=== PATIENT | male | born 1975 | race Caucasian/White ===

== ENCOUNTER 2020-08-02 00:25 | Emergency (ER) | payer OTHER, SELFPAY ==
[2020-08-02 00:30] VITALS: BP 142/79; PULSE 70; RESP 18; TEMP 36.4; O2SAT 97
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
[2020-08-02 01:42] VITALS: BP 131/73; PULSE 78; RESP 16; TEMP 36.4; O2SAT 99
== END 2020-08-02 01:43 | disposition home or self-care (01) ==
PROVIDERS: Emergency Provider Emergency Medicine
DX: T23.251A Burn of second degree of right palm, initial encounter (principal); T31.0 Burns involving less than 10% of body surface; X15.0XXA Contact with hot stove (kitchen), initial encounter
CPT/HCPCS: 99283; A9270

== ENCOUNTER 2022-05-31 11:47 | Emergency (ER) | payer OTHER, SELFPAY ==
[2022-05-31 12:00] VITALS: BP 137/76; PULSE 81; RESP 16; TEMP 36.6; O2SAT 98
--- NOTE | 2022-05-31 12:06 | ED.URI ---
HPI - URI/Sore Throat General Chief Complaint: Upper Respiratory Infection Stated Complaint: sore throat Time Seen by Provider: 05/31/22 12:19 Source: patient and RN notes reviewed Mode of arrival: ambulatory Limitations: no limitations History of Present Illness HPI Narrative: 37-year-old male presents concern for sore throat, cough, sinus pressure, green nasal drainage. Reports cough is worse at night. Patient is concerned for strep throat. He denies fevers, body aches, chills sweats. Reports his got him a prescription of amoxicillin which he started taking yesterday. He is also taking DayQuil and NyQuil MD elicited complaint: cough and sore throat Related Data Home Medications Medication Instructions Recorded Confirmed No Home Medications 08/02/20 08/02/20 Allergies Allergy/AdvReac Type Severity Reaction Status Date / Time No Known Allergies Allergy Verified 08/02/20 00:33 Review of Systems Review of Systems: CONSTITUTIONAL: Denies malaise, chills, sweats, or fever. EYES: Denies visual changes, redness, or discharge. ENT: Reports rhinorrhea, congestion. Reports sinus pain and sore throat. CARDIOVASCULAR: Denies chest pain, palpitations, or edema. RESPIRATORY: Reports cough. Denies dyspnea. GASTROINTESTINAL: Denies abdominal pain, nausea, vomiting, diarrhea SKIN: Denies rash or itching. MUSCULOSKELETAL: Denies myalgia. NEUROLOGIC: Denies headache. All systems reviewed & are unremarkable except as noted in HPI and below PMFSH Comments At time of signature, agree with nursing past medical, surgical, social and family history. There is no relevant family history pertinent to the presenting complaint Exam Narrative: GENERAL: Well-appearing, well-nourished, and in no acute distress. HEAD: Normocephalic EYES: PERRLA, conjunctivae clear ENT: Nares clear, clear discharge. Mucous membranes moist. TM pearly xiao with dull light reflex bilaterally; no tragal tenderness. Oropharynx erythematous without lesions. Tonsils not enlarged and without exudate, no drooling, no hoarseness, no trismus, uvula midline. NECK: Supple. No lymphadenopathy CHEST: Clear to auscultation, breath sounds equal. No wheezing, rhonchi, rales, or stridor. No respiratory distress, speaks in full sentences. HEART: Regular rate and rhythm. No murmur heard. SKIN: Warm, dry, no rash. NEURO: Alert and oriented x3. PSYCH: Normal mood and affect Course Course Emergency Course: Patient is aware of diagnosis, understands and agrees to treatment plan. Anticipatory guidance given. Patient agrees to follow-up as directed and is aware of reasons to seek care at the emergency department. Portions of this record may have been created with voice recognition software Level of Care: Express Care Visit Vital Signs Vital signs: Vital Signs Temperature 97.8 F 05/31/22 12:00 Pulse Rate 81 05/31/22 12:00 Respiratory Rate 16 05/31/22 12:00 Blood Pressure 137/76 05/31/22 12:00 Pulse Oximetry 98 05/31/22 12:00 Oxygen Delivery Room Air 05/31/22 12:00 Temperature 97.8 F 05/31/22 12:00 Pulse Rate 81 05/31/22 12:00 Respiratory Rate 16 05/31/22 12:00 Blood Pressure 137/76 05/31/22 12:00 Pulse Oximetry 98 05/31/22 12:00 Oxygen Delivery Room Air 05/31/22 12:00 Reviewed. MDM - URI/Sore Throat MDM Narrative Medical decision making narrative: Differential diagnosis considered: Santos virus, strep pharyngitis, allergic rhinitis, upper respiratory tract infection, sinusitis, rhinosinusitis, nasopharyngitis. viral pharyngitis, otitis media, otitis externa, pneumonia, bronchitis, viral cough syndrome, viral syndrome, and influenza. Exam findings show no acute concerns or changes; patient is non-toxic appearing and is in no distress. Patient is appropriate for outpatient treatment and follow-up. Lab Data Attestation: I reviewed the patient's lab results. Critical Care Time Critical Care Time Critical Care Time: No
== END 2022-05-31 12:35 | disposition home or self-care (01) ==
PROVIDERS: Emergency Provider Nurse Practitioner
DX: J06.9 Acute upper respiratory infection, unspecified (principal)
CPT/HCPCS: 87081; 87880; 99213; G0463

== ENCOUNTER 2022-10-12 10:42 | Outpatient (CLI) | payer OTHER, SELFPAY ==
--- NOTE | 2022-10-12 | ECG_ITS ---
Measurements Intervals [place] Rate: 50 P: 64 OR: 142 QRS: 2 QRSD: 106 T: 25 QT: 435 QTc: 398 Interpretive Statements SINUS BRADYCARDIA INCOMPLETE RIGHT BUNDLE BRANCH BLOCK [90+ ms QRS DURATION, TERMINAL R IN V1/V2, 40+ ms S IN I/aVL/V4/V5/V6] NO PREVIOUS ECG AVAILABLE FOR COMPARISON Electronically Signed On 10-12-2022 11:59:41 CDT by Martina Brown M.D.
[2022-10-12 11:17] LABS: Basophils Absolute Auto 0.1 K/mm3 (0.0-0.1); Basophils Percent Auto 0.6 % (0.2-1.2); Eosinophils Absolute Auto 0.1 K/mm3 (0-0.3); Eosinophils Percent Auto 1.6 % (0-4.4); Hematocrit 44.2 % (42.0-52.0); Hemoglobin 14.7 g/dL (14.0-18.0); Immature Granulocyte Absolute 0.02 K/mm3 (0.00-0.031); Immature Granulocyte Percent A 0.2 % (0-0.5); Lymphocytes Absolute Auto 2.25 K/mm3 (0.9-3.2); Mean Corpuscular HGB Conc 33.3 g/dl (32-36); Mean Corpuscular Hemoglobin 29.3 pg (26-34); Mean Platelet Volume 11.3 fl (7.4-10.4); Monocytes Absolute Auto 0.6 K/mm3 (0.1-0.6); Monocytes Percent Auto 7.8 % (2.6-8.5); Neutrophils Percent Auto 61.8 % (45.5-73.1); Platelet Count Result 274 k/mm3 (150-375); Red Blood Count 5.02 M/mm3 (4.6-6.20); Red Cell Distribution Width 12.9 % (11.5-14.5); White Blood Count 8.1 K/mm3 (4.5-10.0)
[2022-10-12 11:20] LABS: Appearance Urine Clear (Clear); Bilirubin Urine Negative (Negative); Blood Urine Negative (Negative); Color Urine Yellow (Yellow); Glucose Urine UA Negative (Negative); Ketones Urine Negative (Negative); Leukocyte Esterase Ur Negative LEU/UL (Negative); Nitrate Urine Negative (Negative); Protein Urine Negative (Negative); Specific Grav Ur 1.007 (1.001-1.035); Urobilinogen Urine 0.2 mg/dL (<2.0)
[2022-10-12 11:23] LABS: Add Urine Microscopic? NO
[2022-10-12 11:31] LABS: Alanine Aminotransferase 57 U/L (6-50); Albumin Level 4.8 g/dL (3.5-5.1); Alkaline Phosphatase 94 U/L (38-126); Anion Gap 7 mmol/L (8-16); Aspartate Amino Transferase 38 U/L (17-59); Bilirubin,Total 0.9 mg/dL (0.2-1.3); Blood Urea Nitrogen 8 mg/dL (9-20); Carbon Dioxide 30 mmol/L (22-30); Chloride 99 mmol/L (98-107); Cholesterol 231 mg/dL (0-200); Estimated Glomerular Filt Rate > 60; Glucose 96 mg/dL (65-110); HDL Direct 42 mg/dL; Potassium 4.6 mmol/L (3.4-5.0); Sodium 136 mmol/L (137-145); Triglycerides 140 mg/dL (<150)
[2022-10-12 11:42] LABS: LDL Cholesterol Direct 149 mg/dL
[2022-10-12 12:00] LABS: Prostate Specific Antigen 1.1 ng/mL (< OR = 4.0); Thyroid Stimulating Hormone 0.789 uIU/mL (0.465-4.680)
[2022-10-12 12:02] LABS: Free T4 Free Thyroxine 1.13 ng/mL (0.78-2.19)
[2022-10-12 12:36] LABS: Folic Acid 17.5 ng/mL (2.76->20)
== END 2022-10-12 10:43 | disposition home or self-care (01) ==
PROVIDERS: Visit Provider Family Medicine Sports Medicine
DX: Z00.00 Encounter for general adult medical examination without abnormal findings (principal); L98.9 Disorder of the skin and subcutaneous tissue, unspecified; Z13.21 Encounter for screening for nutritional disorder; Z80.42 Family history of malignant neoplasm of prostate; I45.19 Other right bundle-branch block
CPT/HCPCS: 36415; 80053; 80061; 81003; 82607; 82746; 84153; 84439; 84443; 85025; 93005

== ENCOUNTER 2024-02-27 06:47 | Emergency (ER) | payer OTHER, SELFPAY ==
--- NOTE | ~2024-02-27 | XR_ITS ---
Right elbow Technique: AP, oblique, and lateral views were obtained. Clinical History: Pain Findings: No acute fracture or dislocation is seen. Osseous alignment is anatomic. Joint spaces are p reserved. There is no displacement of the fat pads, and soft tissues are unremarkable. Impression: Unremarkable radiographs. Reviewed, dictated and finalized at location . Impression: Unremarkable radiographs.
[2024-02-27 06:57] VITALS: O2SAT 98
[2024-02-27 06:58] VITALS: BP 134/84; PULSE 60; RESP 16; TEMP 37.1; O2SAT 98
[2024-02-27 06:59] VITALS: BP 134/84; PULSE 58; RESP 18; O2SAT 98
[2024-02-27 07:00] VITALS: O2SAT 98
--- NOTE | 2024-02-27 07:59 | ED.GENADULT ---
HPI - General Adult General Chief complaint: Extremity Injury, Upper Stated complaint: right elbow pain Time Seen by Provider: 02/27/24 07:01 History of Present Illness HPI narrative: Patient is a 49-year-old male who presents ER with right-sided elbow pain. Ongoing for 2 weeks. Associated with swelling. Reports he will bump his arm have increased pain. No significant injury known however. Patient reports he has a torsion. Pain is worse when he is holding something and performing internal external rotation at the elbow. Pain will radiate down towards his hand. No numbness or tingling hand or arm. Related Data Allergies Allergy/AdvReac Type Severity Reaction Status Date / Time No Known Allergies Allergy Verified 08/02/20 00:33 Review of Systems Constitutional: Constitutional: Reports no additional constitutional complaints Musculoskeletal: Musculoskeletal: Denies myalgias, Reports arthralgias, Reports joint swelling and Denies muscle cramps Integumentary/Breasts: Skin/Breast: Reports system reviewed and no additional complaints, except as docu Neurologic: Reports system reviewed and no additional complaints, except as documented PMFSH Past Medical History Medical History (Updated 02/27/24 @ 08:16 by Betito Rojas MD) Healthy adult male Surgical History Surgical History (Updated 02/27/24 @ 08:00 by Betito Rojas MD) No pertinent past surgical history Exam Narrative: GENERAL: Well-appearing, well-nourished, and in no acute distress. HEAD: Normocephalic, atraumatic. ENT: Mucous membranes moist. HEART: Regular rate and rhythm. Normal peripheral pulses. EXTREMITIES: Normal range of motion. No edema. Tender palpation over the radial head on the right side with subsequent swelling overlying this area. No obvious bruising. SKIN: Warm, dry, no rash. NEURO: Alert and oriented x3. PSYCH: Normal mood and affect. Course Course Emergency Course: Imaging with fracture pain. Discussed diagnosis and treatment plan and patient verbalized understanding. Vital Signs Vital signs: Vital Signs Pulse Oximetry 98 02/27/24 06:57 Temperature 98.8 F 02/27/24 06:58 Pulse Rate 58 L 02/27/24 06:59 Respiratory Rate 18 02/27/24 06:59 Blood Pressure 134/84 02/27/24 06:59 Pulse Oximetry 98 02/27/24 07:00 Medical Decision Making Vital Signs Vital Signs: Vital Signs Pulse Oximetry 98 02/27/24 06:57 Temperature 98.8 F 02/27/24 06:58 Pulse Rate 58 L 02/27/24 06:59 Respiratory Rate 18 02/27/24 06:59 Blood Pressure 134/84 02/27/24 06:59 Pulse Oximetry 98 02/27/24 07:00 Imaging Data Radiologist's impression: ITS Impressions Elbow X-Ray 02/27/24 07:58 Impression: Unremarkable radiographs. Discharge Plan Discharge Clinical Impression: Epicondylitis, lateral Patient Disposition: Home, Self-Care Condition: Stable Instructions: Tennis Elbow (ED), P.R.I.C.E. Treatment (ED) Additional Instructions: Wear a compression sleeve to help with her discomfort. You may also by a specific device to put over your forearm for tennis elbow. He should ice the area for 20 minutes 2 to 3 times a day. Take scheduled anti-inflammatory medication which is been prescribed. You may want to follow up with an orthopedic surgeon if you are not improving as sometimes physical therapy or steroid injection can be of benefit. Prescriptions: New naproxen 375 mg tablet 375 mg PO BID Qty: 14 0RF Follow-up/Referrals: Get Maria MD [Physician] - 1 Week UNKNOWN,DOCTOR [Primary Care Provider] -
== END 2024-02-27 08:34 | disposition home or self-care (01) ==
PROVIDERS: Emergency Provider Emergency Medicine
DX: M77.11 Lateral epicondylitis, right elbow (principal)
CPT/HCPCS: 73080; 99283

== ENCOUNTER 2025-01-05 21:06 | Emergency (ER) | payer OTHER, SELFPAY ==
--- NOTE | ~2025-01-05 | XR_ITS ---
EXAM: XR finger 1st RT min 2V DATE: 01/05/2025 23:32 HISTORY: foreign body removal . COMPARISON: Same date at 9:37 PM. FINDINGS/IMPRESSION: Successful interval fishhook removal. No retained radiopaque foreign body. Reviewed, dictated and finalized at location K.
--- NOTE | ~2025-01-05 | XR_ITS ---
EXAM: XR finger 1st RT min 2V DATE: 01/05/2025 21:39 HISTORY: foreign body . COMPARISON: None available. FINDINGS: Normal mineralization. No fracture or dislocation. No lytic or blastic lesion. Joint space s are maintained. No erosion or periosteal change. [place] at the tip of the right thumb, with adjac ent soft tissue swelling. IMPRESSION: [place] in the distal right thumb, without radiographic evidence of osseous involvement. Reviewed, dictated and finalized at location K. IMPRESSION: [place] in the distal right thumb, without radiographic evidence o f osseous involvement.
--- OUTSIDE RECORDS SUMMARY | 2025-01-05 21:08 | XMS_ITS | Clinical Summary ---
Author Organization [facility] Address [facility] [place] [address] Care Team Providers Care Ibm Mainframe Systems Programmer Name Role Phone None, Provider MD Primary Care Provider Unavaila ble Allergies No known active allergies Medications No known medications Immunizations Immunization Administration Dates Next Due Tdap (Boostrix) 06/13/2018 Family History Medical History Relation Comments None Father Cancer Mother Relation Status Comments Father Alive Mother Alive Social History Tobacco Use Types Packs/Day Years Used Date Smoking Tobacco: Former Cigarettes Smokeless Tobacco: Never Alcohol Use Standard Drinks/Week Comments Yes 0 (1 standard drink = 0.6 oz pur e alcohol) SELDOM Sex and Gender Information Value Date Recorded Sex Assigned at Not on file Legal Sex Male 10:55 AM RUBBER SPLICER Gender Identity Not on file Sexual Orientation Not on file Last Filed Vital Signs Vital Sign Reading Time Taken Comments Blood Pressure 118/75 06/24/2018 9:41 AM RUBBER SPLICER Pulse 74 06/24/2018 9:41 AM RUBBER SPLICER Temperature 36.7 C (98 F) 06/24/2018 9:41 AM RUBBER SPLICER Respiratory Rate 18 06/24/2018 9:41 AM RUBBER SPLICER Oxygen Saturation 98% 06/24/2018 9:41 AM RUBBER SPLICER Inhaled Oxygen Concentration - - Weight 81.6 kg (180 lb) 06/24/2018 9:41 AM RUBBER SPLICER Height 177.8 cm (5' 10) 06/24/2018 9:41 AM RUBBER SPLICER Body Mass Index 25.83 06/24/2018 9:41 AM RUBBER SPLICER Plan of Treatment Health Maintenance Due Date Last Done Comments Colorectal Cancer Screening Colonoscopy (10 Years) 1976 Annual Physical 01/05/1979 Hepatitis C 01/05/1994 Hepatitis B Vaccines (1 of 3 - 19+ 3-dose series) 01/05/1995 COVID-19 Vaccine (2023-2 5 season) 2024 DTaP, Tdap and Td Vaccines ( 2 - Td or Tdap) 06/13/2028 06/13/2018 Meningococcal B Vaccine Aged Out No l onger eligible based on patient's age to complete this topic Meningococcal Vaccine Aged Out No jeny mary eligible based on patient's age to complete this topic Pneumococcal Vaccine: Pediat rics (0 to 5 Years) and At-Risk Patients (6 to 49 Years) Aged Out No longer eligi ble based on patient's age to complete this topic RSV Immunizations Under 20 Months Aged Out No longer eligible based on patient's age to complete this topic Insurance [employer] Care Teams Ibm Mainframe Systems Programmer Relationship Specialty Start Date End Date None, Provider, PCP - General 06/13/18
[2025-01-05 21:20] VITALS: BP 119/79; PULSE 86; RESP 18; TEMP 36.3; O2SAT 98
[2025-01-05] MEDS: TETANUS,DIPHTHERIA,AC PERTUSSIS ADULT (0.5 ML) BOOSTRIX IM (21:40)
--- OUTSIDE RECORDS SUMMARY | 2025-01-05 21:49 | XMS_ITS | Clinical Summary ---
Author Organization [facility] Address [facility] [place] [address] Care Team Providers Care Api Architect Name Role Phone None, Provider MD Primary [...] on file Legal Sex Male 10:55 AM ROLLER STAINER Gender Identity Not on file Sexual Orientation Not on file Last Filed Vital Signs Vital Sign Reading Time Taken Comments Blood Pressure 118/75 06/24/2018 9:41 AM ROLLER STAINER Pulse 74 06/24/2018 9:41 AM ROLLER STAINER Temperature 36.7 C (98 F) 06/24/2018 9:41 AM ROLLER STAINER Respiratory Rate 18 06/24/2018 9:41 AM ROLLER STAINER Oxygen Saturation 98% 06/24/2018 9:41 AM ROLLER STAINER Inhaled Oxygen Concentration - - Weight 81.6 kg (180 lb) 06/24/2018 9:41 AM ROLLER STAINER Height 177.8 cm (5' 10) 06/24/2018 9:41 AM ROLLER STAINER Body Mass Index 25.83 06/24/2018 9:41 AM ROLLER STAINER Plan of Treatment Health Maintenance Due Date [...] Insurance [employer] Care Teams Api Architect Relationship Specialty Start Date End Date None, Provider, PCP - General 06/13/18
--- NOTE | 2025-01-05 23:24 | ED_ITS ---
HPI - Skin/Abscess/Foreign Bdy General Chief complaint: Skin/Abscess/Foreign Body Stated complaint: fish hook in R. Thumb Time Seen by Provider: 01/05/25 21:32 Source: patient Mode of arrival: ambulatory Limitations: no limitations History of Present Illness HPI narrative: This is a 50-year-old male that presents to the emergency department for fishhook in his right 1st finger. Happened just prior to arrival. Not up to date on tetanus vaccination. Related Data Allergies Allergy/AdvReac Type Severity Reaction Status Date / Time No Known Allergies Allergy Verified 01/05/25 21:26 Review of Systems Review of Systems: All systems reviewed & are unremarkable except as noted in HPI and below PMFSH Past Medical History Medical History Healthy adult male Surgical History Surgical History No pertinent past surgical history Family History Family History (Updated 03/06/24 @ 13:17 by Lianna Smith) Father Malignant neoplasm of prostate Mother Glioblastoma Social History Social History (Updated 03/06/24 @ 13:15 by Lianna Smith) Smoking packs per day: 1 Smoking cigarettes per day: 20.0 Years smoked: 15 Smoking pack-years: 15.00 Smoking status: Former smoker Tobacco type: smokeless tobacco Smokeless tobacco user: chewing tobacco Alcohol intake: current Drinks per week: 2 Occupation/Education: occupation Gender identity (if verbalized by the patient): Male Exam Narrative: GENERAL: Well-appearing, well-nourished, and in no acute distress. HEAD: Normocephalic, atraumatic. EYES: EOMI. EXTREMITIES: Normal range of motion. No edema. [place] in tip of right 1st finger SKIN: Warm, dry, no rash. NEURO: No focal deficits. Alert and oriented x3. PSYCH: Normal mood and affect Course Vital Signs Vital signs: Vital Signs Temperature 97.4 F L 01/05/25 21:20 Pulse Rate 86 01/05/25 21:20 Respiratory Rate 18 01/05/25 21:20 Blood Pressure 119/79 01/05/25 21:20 Pulse Oximetry 98 01/05/25 21:20 Oxygen Delivery Room Air 01/05/25 21:20 Temperature 97.2 F L 01/05/25 23:57 Pulse Rate 75 01/05/25 23:57 Respiratory Rate 18 01/05/25 21:20 Blood Pressure 124/74 01/05/25 23:57 Pulse Oximetry 97 01/05/25 23:57 Oxygen Delivery Room Air 01/05/25 21:20 Procedures Foreign Body Removal Foreign Body #1: Foreign Body Removal Date: 01/05/25 Foreign Body Removal Time: 23:51 Site: right Description of foreign body: fish hook Sedation/Analgesia: other (lidocaine) Technique: removal with forceps Confirmed by:: direct visualization and radiograph Complications: none Post-procedure exam: awake, alert Neurovascular: normal capillary fill and no change from pre-procedure MDM - Skin/Abscess/Foreign Bdy MDM Narrative Medical decision making narrative: Patient presents the emergency department for a fishhook stuck in his finger. This was successfully removed. Updated on tetanus vaccination. Will be started on prophylactic antibiotics. Given warnings to return to the ER Differential Diagnosis Differential diagnosis: Likely other (Foreign body in skin) Imaging Data Radiologist's impression: ITS Impressions Finger X-Ray 01/05/25 21:48 IMPRESSION: [place] in the distal right thumb, without radiographic evidence of osseous involvement. EXAM: XR finger 1st RT min 2V DATE: 01/05/2025 23:32 HISTORY: foreign body removal . COMPARISON: Same date at 9:37 PM. FINDINGS/IMPRESSION: Successful interval fishhook removal. No retained radiopaque foreign body. Critical Care Time Critical Care Time Critical Care Time: No Discharge Plan Discharge Clinical Impression: Foreign body finger Patient Disposition: Home Condition: Stable Instructions: Antibiotic Form, Soft Tissue Foreign Body (ED) Additional Instructions: Return if symptoms worsen or concerns: any redness, swelling, pain or fever over 101 Take antibiotics as directed. Clean wound with mild soapy water. Apply antibiotic ointment daily Follow up with primary care in the next 2-3 days for wound check Patient Language: Chadian Prescriptions: New cephalexin 500 mg capsule 500 mg PO Q8H 5 Days Qty: 15 0RF No Action naproxen 375 mg tablet 375 mg PO BID Qty: 14 0RF Follow-up/Referrals: PHYSICIAN,SUPERVISOR GAS METER REPAIR [Primary Care Provider] - Alfredo Gleason MD [Physician] -
[2025-01-05] MEDS: CEPHALEXIN 500 MG CAPSULE PO (23:49)
[2025-01-05 23:57] VITALS: BP 124/74; PULSE 75; TEMP 36.2; O2SAT 97
== END 2025-01-05 23:59 | disposition home or self-care (01) ==
PROVIDERS: Emergency Provider Physician Assistant
DX: S61.041A Puncture wound with foreign body of right thumb without damage to nail, initial encounter (principal); Z23 Encounter for immunization; W45.8XXA Other foreign body or object entering through skin, initial encounter; W26.8XXA Contact with other sharp object(s), not elsewhere classified, initial encounter
CPT/HCPCS: 73140; 90471; 90715; 99283; A9270